=== PATIENT | male | born 2000 | race Caucasian/White ===

== ENCOUNTER 2019-04-29 14:54 | Emergency (ER) | payer OTHER ==
[~2019-04-29] VITALS: Ht 172.7 cm; Wt 68.6 kg
[~2019-04-29 14:54] MED LIST: motrin
[2019-04-29 14:57] VITALS: BP 130/61; PULSE 92; RESP 18; Ht 172.7 cm; Wt 68.6 kg
[2019-04-29] MEDS ORDERED: IMIQ1CRE14 TOP (15:41)
--- NOTE | 2019-04-29 15:49 | ERD ---
ER Documentation Chief Complaint Chief Complaint PENILE DISCOMFORT TODAY HPI 18-year-old male presents complaint of penile discomfort. States that his penis is not in pain but rather feels uncomfortable. States that he is having unprotected sex with his female partner and he has had chlamydia in the past. Denies any dysuria or discharge. States that he does not want to be treated for antibiotics unless he knows he has chlamydia so he rather just get tested at this time. In addition he states that there is a small wart on his penis which he is concerned about. Denies any erythema to the foreskin, edema, phimosis, paraphimosis, testicular pain, fevers, chills, hematuria. ROS All systems reviewed and are negative except as per history of present illness. Medications Home Meds Active Scripts Imiquimod (Imiquimod) 5% Cream.pack, 1 PACKET TOP 3x a week at bedtime, #1 TUBE Apply for up to 16 weeks Prov:ILEANA DUVALL 04/29/19 Reported Medications [motrin] No Conflict Check 01/17/11 Allergies Allergies: Coded Allergies: No Known Allergies (Verified Allergy, Mild, 01/17/11) PMhx/Soc History of Surgery: No Anesthesia Reaction: No Hx Neurological Disorder: No Hx Respiratory Disorders: No Hx Cardiac Disorders: No Hx Psychiatric Problems: No Hx Miscellaneous Medical Probl: No Hx Alcohol Use: No Hx Substance Use: No Hx Tobacco Use: No FmHx Family History: No diabetes, No coronary disease, No other Physical Exam Vitals Vital Signs Date Temp Pulse Resp B/P (MAP) Pulse Ox O2 O2 Flow FiO2 Time Delivery Rate 04/29/19 98.6 92 18 130/61 99 14:57 (84) Physical Exam Const: No acute distress Head: Atraumatic Eyes: Normal Conjunctiva ENT: Normal External Ears, Nose and Mouth. Neck: Full range of motion. No meningismus. Resp: Clear to auscultation bilaterally Cardio: Regular rate and rhythm, no murmurs Abd: Soft, non tender, non distended. Normal bowel sounds Skin: No petechiae or rashes Back: No midline or flank tenderness Ext: No cyanosis, or edema Neur: Awake and alert Psych: Normal Mood and Affect : Foreskin is not edematous or erythematous. Foreskin is able to retract. No signs of phimosis or paraphimosis. Small proximally half millimeter wart noted proximal to the glans. No penile discharge noted. No discharge or, edema, erythema noted to the glans. Procedures/MDM MDM: I offered to treat patient empirically based on his high risk sexual behavior but he stated he would rather just get tested for chlamydia and gonorrhea and if positive he can come back or go to another clinic for treatment. He did state he wanted imiquimod cream for the possible genital wart. I have low suspicion for phimosis, paraphimosis, testicular torsion, balanitis, or any emergent condition. Patient advised to refrain from sexual contact with his partner until results come back. Patient discharged with strict ER precautions. Patient advised to follow up with PMD. All questions answered at discharge. Departure Diagnosis: Primary Impression: High risk sexual behavior High risk sexual behavior type: heterosexual Qualified Codes: Z72.51 - High risk heterosexual behavior Additional Impression: Genital warts Condition: Stable Patient Instructions: For Teens: What You Should Know About Genital Warts, Genital Warts (Condyloma), For Teens: Understanding HPV and Genital Warts, Treating Genital Warts Additional Instructions: FOLLOW UP WITH YOUR PRIMARY CARE PHYSICIAN TOMORROW.Return to this facility if you are not improving as expected. Call in 3 days for the results of your STD panel. ILEANA DUVALL Apr 29, 2019 15:49
== END 2019-04-29 16:41 | disposition home or self-care (01) ==
LOC: FTE 14:54
DX: A63.0 Anogenital (venereal) warts (principal); Z72.51 High risk heterosexual behavior
CPT/HCPCS: 87591; Z7502; 99283

== ENCOUNTER 2019-06-18 13:36 | Emergency (ER) | payer OTHER ==
[~2019-06-18] VITALS: Ht 177.8 cm; Wt 71.4 kg
[~2019-06-18 13:36] MED LIST changes: +IMIQ1CRE14 TOP
[2019-06-18 13:43] VITALS: BP 116/69; PULSE 80; RESP 16; Ht 177.8 cm; Wt 71.4 kg
[2019-06-18] MEDS ORDERED: ONDANSETRON (ODT) 4 MG TAB ODT STA (14:45)
[2019-06-18] MEDS ORDERED: ONDA4TAB8 PO (15:11)
--- NOTE | 2019-06-18 17:31 | ERD ---
ER Documentation Chief Complaint Chief Complaint pt c/o nausea and diarrhea x 1 day, denies fever HPI 18-year-old male presents to the ED with complaint of nausea, vomiting, diarrhea x1 day. Denies abdominal pain. Patient notes vomiting resolved yesterday however continues with diarrhea today. Admits to improvement with the use of Pepto-Bismol and states is able to tolerate p.o. intake with his last meal being a sandwich hours prior to arrival with no vomiting. He denies recent antibiotic use or foreign travel, no fever, chills, sweats. Denies history of DM, CA, IVDA. ROS All systems reviewed and are negative except as per history of present illness. Medications Home Meds Active Scripts Ondansetron Hcl* (Zofran*) 4 Mg Tablet, 4 MG PO Q6H for NAUSEA AND/OR VOMITING, #30 TAB Prov:ALEX GRACIA PA-C 06/18/19 Imiquimod (Imiquimod) 5% Cream.pack, 1 PACKET TOP 3x a week at bedtime, #1 TUBE Apply for up to 16 weeks Prov:ILEANA DUVALL 04/29/19 Reported Medications [motrin] No Conflict Check 01/17/11 Allergies Allergies: Coded Allergies: No Known Allergies (Verified Allergy, Mild, 01/17/11) PMhx/Soc History of Surgery: No Anesthesia Reaction: No Hx Neurological Disorder: No Hx Respiratory Disorders: No Hx Cardiac Disorders: No Hx Psychiatric Problems: No Hx Miscellaneous Medical Probl: No Hx Alcohol Use: No Hx Substance Use: No Hx Tobacco Use: No Smoking Status: Never smoker Physical Exam Vitals Vital Signs Date Temp Pulse Resp B/P (MAP) Pulse Ox O2 O2 Flow FiO2 Time Delivery Rate 06/18/19 98.9 80 16 116/69 98 13:43 (85) Physical Exam Constitutional: Well developed. Well nourished. No acute distress. Nontoxic in appearance. Head/Eyes: Atraumatic. Normocephalic. PERRL. EOMI ENT: Moist mucous membranes. Voice normal. Neck: Supple. No lymphadenopathy Cardiovascular: Regular rate and rhythm. No murmurs, rubs, or gallops. Distal pulses intact Respiratory: No respiratory distress. Normal breath sounds. No wheezes, rales, or rhonchi. Abdominal: Soft. Non-tender. No guarding, rebound, or rigidity. Non-distended. No right lower quadrant tenderness, no rebound tenderness. No McBurney's point tenderness. negative Blackwood's Extremities: No edema, Full ROM. No CVA tenderness. Skin: Dry. No rashes. Warm. Turgor appropriate. Neurological: Alert and oriented X 3. Normal speech. Ambulating appropriately Psychiatric: Normal mood. Normal affect Results 24 hrs Current Medications Medications Dose Sig/Tolu Start Time Status Last (Trade) Ordered Route PRN Stop Time Admin Dose Reason Admin Ondansetron 4 mg ONCE STAT 06/18/19 DC 06/18/19 HCl (Zofran ODT 14:45 14:53 Odt) 06/18/19 14:50 Procedures/MDM MDM: This is an otherwise healthy 18-year-old male who presents to the emergency room with complaint of nausea, vomiting, diarrhea x1 day. Patient notes vomiting resolved last night and is able to tolerate p.o. intake. He is afebrile and VSS at time of presentation. No focal finding on physical exam, soft and nontender. Given the fact that patient is tolerating p.o. intake, afebrile, VSS, unremarkable physical exam I do not believe further work-up is necessary at this time as symptoms consistent with viral gastroenteritis. Very low suspicion for acute abdomen at this time, however I have counseled the patient regarding need for follow-up and to return to the ED within 8 to 12 hours if symptoms persist or worsen. Patient is stable for discharge, and will be discharged with a prescription for Zofran. Counseled regarding brat diet, and fluid intake. Advised for follow-up with PCP within the next 2 to 3 days. Patient expressed verbal understanding and agreement to treatment plan, all questions addressed and answered. Departure Diagnosis: Primary Impression: Viral gastroenteritis Condition: Stable Patient Instructions: Diet, [place] (Adult), Gastroenteritis, Viral (6Y-Adult) ALEX GRACIA PA-C Jun 18, 2019 17:31
== END 2019-06-18 15:20 | disposition home or self-care (01) ==
LOC: FTE 13:36
DX: A08.4 Viral intestinal infection, unspecified (principal)
CPT/HCPCS: Z7502; Z7610; 99283